=== PATIENT | male | born 1965 | race Caucasian/White ===

== ENCOUNTER 2020-05-03 20:54 | Emergency (ER) | payer SELFPAY ==
[2020-05-03] MEDS ORDERED: LIDOCAINE HCL 2% (MOUTH-THROAT) 15 ML UD ONE (21:04)
[2020-05-03] MEDS ORDERED: MINERAL OIL PO ONE (21:07)
[2020-05-03] MEDS ORDERED: SODIUM PHOS/BIPHOS ENEMA ADULT 133 ML BTTL PR ONE ×2 (21:07→21:09)
[2020-05-03] MEDS ORDERED: BUTORPHANOL TARTRATE 2 MG/ML VIAL ONE (21:31)
[2020-05-03] MEDS ORDERED: BUTORPHANOL TARTRATE 2 MG/ML VIAL IV ONE (21:34)
--- NOTE | 2020-05-03 22:04 | RAD ---
EXAM DESCRIPTION: Abdomen Flat Upright 05/03/2020 10:00 PM [facility] CLINICAL HISTORY: 55 years, Male, abd pain, possible constipation COMPARISON: None. FINDINGS: 2 X-ray views of the of the abdomen (supine and erect) were performed. No prior films are available this time for comparison. The gas pattern is nondiagnostic. No signs of ileus or obstruction. No free air under the diaphragm is noted. Fecal residue within the rectum could correspond to infection. There is a radiodensity within the left renal fossa area lower pole measuring 8.7 mm and a questionable calcification within the medial aspect of the renal fossa measuring 4.5 mm possibility of nephrolithiasis could be of consideration.. There is also noted the presence of a radiodensity within the central aspect of the pelvis measuring 13.6 mm, whether this correspond to phlebolith and/or urinary bladder calculus could be of consideration. The bone windows minimal degenerative changes/anterior spondylosis. IMPRESSION: QUESTIONABLE LEFT NEPHROLITHIASIS AND/OR URINARY BLADDER CALCULUS. CONSTIPATION/FECAL IMPACTION. Electronically signed by: Tomas Raygoza MD 05/03/2020 10:02 PM [facility]
[2020-05-03] MEDS ORDERED: LACTULOSE SYRUP 20 GM/30 ML UD PO ONE (22:08)
--- NOTE | 2020-05-03 22:11 | ED.PDOC ---
History of Present Illness - General Chief Complaint: Abdominal Pain Stated Complaint: abd pain, and constipation Time Seen by Provider: 05/03/20 21:00 Source: patient Exam Limitations: no limitations - History of Present Illness Initial Comments: The patient is a 55-year-old male presented emergency room secondary to abdominal pain due to constipation. The patient has had significant constipation episodes since his injury. The patient has been having cramping for the last 24 to 48 hours. He is passing some watery stool. Rectal exam here shows some hard stool in the rectal vault which is removed but still some more extensive stool proximal that cannot be reached. No rebound or peritoneal signs. No blood in the stool. The only constipation medication I see on the patient's medication list is Colace. No fever. No vomiting. Again he is having watery output around the stool. Timing/Duration: 24 hours Severity: moderate Improving Factors: nothing Worsening Factors: nothing Associated Symptoms: denies symptoms Allergies/Adverse Reactions: Allergies Aspirin Allergy (Verified 05/03/20 21:34) Penicillins Allergy (Verified 05/03/20 21:34) Home Medications: Ambulatory Orders Azathioprine [Azasan] 75 mg PO DAILY 05/03/20 Benzocaine-Menthol (Mouth-Thro [Chloraseptic 6-10 mg] 1 melissa MT Q4HR PRN 05/03/20 Bisacodyl Suppository 10Mg [Dulcolax Suppository 10mg] 10 mg OR DAILY PRN 05/03/20 Diphenhydramine-Zinc Acetate [Benadryl 1-0.1 %] 1 cre EX BID 05/03/20 Docusate Sodium [Colace Cap] 100 mg PO DAILY 05/03/20 Ibuprofen 400 mg PO Q8HR PRN 05/03/20 Lactulose 20 gm PO Q6HR PRN #300 ml 05/03/20 Melatonin 5 mg PO 05/03/20 Multiple Vitamins W/ Minerals [Multivitamin] 1 tab PO 05/03/20 Oxybutynin Chloride [Oxybutynin Chloride ER] 5 mg PO 05/03/20 Promethazine HCl 25 mg PO TID PRN 05/03/20 Pyridostigmine Denver 60 mg PO TID PRN 05/03/20 Review of Systems - Review of Systems Constitutional: States: no symptoms reported EENTM: States: no symptoms reported Respiratory: States: no symptoms reported Cardiology: States: no symptoms reported Gastrointestinal/Abdominal: States: abdominal pain, constipation Genitourinary: States: no symptoms reported Musculoskeletal: States: no symptoms reported Skin: States: no symptoms reported Neurological: States: anxiety Endocrine: States: no symptoms reported All other Systems: No Change from Baseline Past Medical History (General) - Patient Medical History Hx Seizures: No Hx Stroke: No Hx Dementia: No Hx Asthma: No Hx of COPD: No Hx Cardiac Disorders: No Hx Congestive Heart Failure: No Hx Pacemaker: No Hx Hypertension: Yes Hx Thyroid Disease: Yes Hx Diabetes: No Hx Gastroesophageal Reflux: Yes Hx Renal Disease: Yes Hx Cancer: No Hx of HIV: No Hx Hepatitis C: No Hx MRSA: No - Vaccination History Hx Tetanus, Diphtheria Vaccination: Yes Hx Influenza Vaccination: Yes Hx Pneumococcal Vaccination: No Immunizations Up to Date: Yes - Social History Hx Tobacco Use: No Years Tobacco Use: 30 Cigarettes Packs Per Day: 1 Hx Chewing Tobacco Use: No Hx Alcohol Use: No Hx Substance Use: No Hx Substance Use Treatment: No Hx Depression: No - Activities of Daily Living Penitentiary/Assisted Living (if applicable):: [facility] Agency (if applicable):: None Family Medical History - Family History Mother Family History: Unknown Physical Exam - Physical Exam General Appearance: Alert, Obvious distress Eye Exam: bilateral normal Ears, Nose, Throat: hearing grossly normal, normal pharynx Neck: non-tender Respiratory: lungs clear, normal breath sounds, no respiratory distress, no accessory muscle use Cardiovascular/Chest: normal peripheral pulses, no edema, other - Borderline tachycardia but the patient is obviously uncomfortable Peripheral Pulses: radial,right: 2+, radial,left: 2+ Gastrointestinal/Abdominal: soft, other - Stool is palpable. No true rebound or peritoneal signs. Rectal Exam: other - Viscous Lidocaine was used for the rectal exam and fecal disimpaction. Extremity: no pedal edema, normal capillary refill Neurologic: addiction specialist II-XII nml as tested, alert, normal mood/affect - He is appropriately anxious, oriented x 3 Skin Exam: normal color Comments: Vital Signs - 24 hr 05/03/20 20:54 Temperature 97.3 F L Pulse Rate [ 112 H Right Radial] Respiratory 20 Rate Blood Pressure 126/101 [Right Arm] O2 Sat by Pulse 94 L Oximetry Progress - Progress Progress: 05/03/20 22:12 The patient is a 55-year-old male presented emergency room secondary to abdominal pain due to recurrent constipation. Manual disimpaction was attempted by me with viscous lidocaine. He subsequently had a fleets enema and was given oral lactulose. The patient is going to be written for oral lactulose to be used up to 3 times daily if needed for constipation. He should at least receive 3 doses over the course of tomorrow in order to help relieve the constipation higher up. The patient does likely need a longer term medication to use on a daily or semidaily basis to help prevent constipation in the future due to his other medications and decreased mobility. Periodic doses of Castror oil or mineral oil may help. 3-5 times weekly doses of MiraLAX may also help. No evidence of any bowel obstruction at this point. Patient will be discharged back to the long-term care facility to resume his rehabilitation. domingo paul [id number] - Results/Orders Results/Orders: X-ray of the abdomen shows patient. He also likely has a stone in the bladder and the kidneys. Departure - Departure Clinical Impression: Constipation by delayed colonic transit Disposition: Discharge to SNF Condition: Fair Departure Forms: ED Discharge - Pt. Copy, Patient Portal Self Enrollment Instructions: DI for Abdominal Pain-Adult, Constipation, Adult (DC) Diet: other - High-fiber diet Activity: increase activity as tolerated Referrals: West Chris MD [Primary Care Provider] - 1-2 Days Prescriptions: Lactulose 20 gm PO Q6HR PRN #300 ml PRN Reason: Constipation Home Medications: Ambulatory Orders Azathioprine [Azasan] 75 mg PO DAILY 05/03/20 Benzocaine-Menthol (Mouth-Thro [Chloraseptic 6-10 mg] 1 melissa MT Q4HR PRN 05/03/20 Bisacodyl Suppository 10Mg [Dulcolax Suppository 10mg] 10 mg OR DAILY PRN 05/03/20 Diphenhydramine-Zinc Acetate [Benadryl 1-0.1 %] 1 cre EX BID 05/03/20 Docusate Sodium [Colace Cap] 100 mg PO DAILY 05/03/20 Ibuprofen 400 mg PO Q8HR PRN 05/03/20 Lactulose 20 gm PO Q6HR PRN #300 ml 05/03/20 Melatonin 5 mg PO 05/03/20 Multiple Vitamins W/ Minerals [Multivitamin] 1 tab PO 05/03/20 Oxybutynin Chloride [Oxybutynin Chloride ER] 5 mg PO 05/03/20 Promethazine HCl 25 mg PO TID PRN 05/03/20 Pyridostigmine Denver 60 mg PO TID PRN 05/03/20 Additional Instructions: The patient is a 55-year-old male presented emergency room secondary to abdominal pain due to recurrent constipation. Manual disimpaction was attempted by me with viscous lidocaine. He subsequently had a fleets enema and was given oral lactulose. The patient is going to be written for oral lactulose to be used up to 3 times daily if needed for constipation. He should at least receive 3 doses over the course of tomorrow in order to help relieve the constipation higher up. The patient does likely need a longer term medication to use on a daily or semidaily basis to help prevent constipation in the future due to his other medications and decreased mobility. Periodic doses of Castror oil or mineral oil may help. 3-5 times weekly doses of MiraLAX may also help. No evidence of any bowel obstruction at this point. Patient will be discharged back to the long-term care facility to resume his rehabilitation.
[2020-05-03 23:15] VITALS: BP 125/84; TEMP 97; O2SAT 95
== END 2020-05-03 23:15 ==
LOC: ER 20:54
DX: K59.01 Slow transit constipation (principal); K21.9 Gastro-esophageal reflux disease without esophagitis; I10 Essential (primary) hypertension; E07.9 Disorder of thyroid, unspecified; Z79.899 Other long term (current) drug therapy; Z88.6 Allergy status to analgesic agent; Z88.0 Allergy status to penicillin
CPT/HCPCS: 74019; J0595

== ENCOUNTER 2020-05-26 12:10 | Inpatient (IN) | payer MEDICAID ==
--- NOTE | 2020-05-26 12:50 | RAD ---
EXAM: Hip,Left 2 Views INDICATION: 55 years Male, fall COMPARISON: None available FINDINGS: 2 views of the left hip were performed. Osteopenia. Acute subcapital fracture of the proximal left femur with foreshortening. The femoral head remains well seated within the acetabulum. No apparent destructive osseous lesion. IMPRESSION: Acute subcapital fracture of the left femur. Electronically signed by: Kezia East MD 05/26/2020 12:49 PM [facility]
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
[2020-05-26] MEDS ORDERED: MORPHINE SULFATE INJ 10 MG/ML VIAL IV ONE (13:21)
[2020-05-26] MEDS ORDERED: SODIUM CHLORIDE 0.9% 500ML 500 ML IVS ONE (13:22)
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
[2020-05-26] MEDS ORDERED: SODIUM CHLORIDE 0.9% (FLUSH) 10 ML SYG IV PRN (14:48)
[2020-05-26] MEDS ORDERED: ONDANSETRON INJ 4 MG/2 ML VIAL IV PRN (14:48)
[2020-05-26] MEDS ORDERED: ACETAMINOPHEN 325 MG TAB PO PRN (14:48)
[2020-05-26] MEDS ORDERED: ALBUTEROL SULFATE 2.5 MG/3 ML VIAL NEB PRN (14:48)
[2020-05-26] MEDS ORDERED: MORPHINE SULFATE INJ 10 MG/ML VIAL IV PRN (14:48)
[2020-05-26] MEDS ORDERED: POTASSIUM CHLORIDE 20 MEQ TAB PO ONE (15:59)
--- NOTE | 2020-05-26 16:18 | RAD ---
EXAM DESCRIPTION: Chest,1 View CLINICAL HISTORY: z01.818 Preop COMPARISON: None Available. TECHNIQUE: One view radiograph of the chest FINDINGS: Postsurgical changes lower cervical spine. Cardiac silhouette shows normal heart size. Pulmonary vascularity is within normal limits. Lungs show no confluent infiltrates. No pleural effusion. No pneumothorax. Osseous structures of chest show no acute displaced fracture. IMPRESSION: No acute cardiopulmonary process. Electronically signed by: Tomas Martin MD 05/26/2020 4:17 PM [facility]
[2020-05-26] MEDS ORDERED: ACETAMINOPHEN 325 MG TAB PO ONE (16:40)
[2020-05-26] MEDS ORDERED: diphenhydrAMINE HCL 50 MG/ML VIAL IV ONE (16:40)
[2020-05-26] MEDS ORDERED: SODIUM CHLORIDE 0.9% 500ML 500 ML IVS SCH (17:00)
[2020-05-26] MEDS: IV SET AND CAP CHANGE INJ INJ SCH (17:00)
[2020-05-26] MEDS ORDERED: LACTATED RINGERS 1,000 ML ONE (17:09)
[2020-05-26] MEDS ORDERED: POTASSIUM CHLORIDE 20 MEQ TAB ONE (17:09)
[2020-05-26] MEDS: HYDROmorphone HCL INJ 2 MG/ML VIAL IV PRN (17:15)
[2020-05-26] MEDS: LACTATED RINGERS 1,000 ML IVS PRN (17:16)
[2020-05-26] MEDS: SODIUM CHLORIDE 0.9% (FLUSH) 10 ML SYG IV SCH (21:31)
[2020-05-27] MEDS: HYDROmorphone HCL INJ 2 MG/ML VIAL IV PRN ×4 (00:47→21:06)
[2020-05-27] MEDS: LACTATED RINGERS 1,000 ML IVS PRN (00:54)
[2020-05-27] MEDS ORDERED: PANTOPRAZOLE SODIUM IV 40 MG VIAL ONE (04:03)
[2020-05-27] MEDS: PANTOPRAZOLE SODIUM IV 40 MG VIAL IV SCH (05:48)
[2020-05-27] MEDS ORDERED: VANCOMYCIN HCL INJ 1,000 MG in SODIUM CHLORIDE 0.9% 250ML 250 ML IVPB ONE (07:00)
[2020-05-27] MEDS ORDERED: ceFAZolin SODIUM 2 GM in SODIUM CHLORIDE 0.9% 100ML 100 ML IVPB ONE (07:00)
[2020-05-27] MEDS: SODIUM CHLORIDE 0.9% (FLUSH) 10 ML SYG IV SCH ×2 (09:18→20:41)
[2020-05-27] MEDS: PYRIDOSTIGMINE BROMIDE 60 MG PO SCH ×3 (09:18→20:24)
[2020-05-27] MEDS: DOCUSATE SODIUM 100 MG CAP PO SCH (09:19)
[2020-05-27] MEDS: AZATHIOPRINE 75 MG PO SCH (09:19)
[2020-05-27] MEDS ORDERED: VANCOMYCIN HCL INJ 1,000 MG VIAL IVPB ONE ×2 (10:37→12:19)
[2020-05-27] MEDS ORDERED: BUPIVACAINE 0.5% 30 ML VIAL INJ ONE ×2 (10:37→12:19)
[2020-05-27] MEDS ORDERED: ceFAZolin SODIUM 1 GM VIAL ONE (10:37)
[2020-05-27] MEDS ORDERED: BUPIVACAINE LIPOSOME 13.3 MG/ML VIAL INJ ONE ×2 (10:37→12:19)
[2020-05-27] MEDS ORDERED: HYDROmorphone HCL INJ 2 MG/ML VIAL ONE (12:01)
[2020-05-27] MEDS ORDERED: MIDAZOLAM INJ 2 MG/2 ML VIAL ONE (12:01)
[2020-05-27] MEDS ORDERED: CYCLOBENZAPRINE HCL 10 MG TAB PO PRN (12:15)
[2020-05-27] MEDS ORDERED: BENZOCAINE-MENTH LOZ (CEPACOL) 1 EA LOZ MT PRN (12:15)
[2020-05-27] MEDS ORDERED: TEMAZEPAM 15 MG CAP PO PRN (12:15)
[2020-05-27] MEDS ORDERED: MAGNESIUM HYDROXIDE 30 ML UD PO PRN (12:15)
[2020-05-27] MEDS ORDERED: ALUMINUM & MAGNESIUM HYDROXIDE 30 ML UD PO PRN (12:15)
[2020-05-27] MEDS ORDERED: BISACODYL SUPPOSITORY 10 MG PR PRN (12:15)
[2020-05-27] MEDS ORDERED: ZOLPIDEM TARTRATE 5 MG TAB PO PRN (12:15)
[2020-05-27] MEDS ORDERED: ACETAMINOPHEN 325 MG TAB PO PRN (12:15)
[2020-05-27] MEDS ORDERED: ceFAZolin SODIUM 1 GM VIAL IRRIG ONE (12:19)
[2020-05-27] MEDS ORDERED: ELECTROLYTE-A 1,000 ML IVS ONE ×2 (12:21→13:52)
[2020-05-27] MEDS ORDERED: ceFAZolin SODIUM 2 GM in SODIUM CHLORIDE 0.9% 100ML 100 ML IVPB SCH (12:30)
[2020-05-27] MEDS ORDERED: PROPOFOL 200 MG/20 ML VIAL IV ONE (12:46)
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
[2020-05-27] MEDS: cefTRIAXone SODIUM 1 GM in SODIUM CHL 0.9% 50ML MIN-BAG+ 50 ML IVPB SCH (15:53)
--- NOTE | 2020-05-27 15:53 | RAD ---
EXAM DESCRIPTION: Hip,Left 2 Views CLINICAL HISTORY: post-op COMPARISON: May 26, 2020 IMPRESSION: 2 views of the left hip including crosstable lateral shows interval postsurgical changes from hip arthroplasty with cement fixation of the femoral component. No complicating features are seen. Soft tissue emphysema lateral to the hip is identified. Osseous structures are diffusely osteopenic. Electronically signed by: Jamel Bowie MD 05/27/2020 3:51 PM [facility]
--- NOTE | 2020-05-27 15:54 | RAD ---
EXAM DESCRIPTION: Pelvis,2 or More Views CLINICAL HISTORY: 55 years Male, post op COMPARISON: Yesterday Findings: One view(s)/radiograph(s) Left hip arthroplasty. No hardware complication. Osteopenia. Suboptimal profiling of the right femoral neck. No acute fracture lucency is identified. No dislocation. IMPRESSION: Left hip arthroplasty. No hardware complication. Electronically signed by: Yann Benavides MD 05/27/2020 3:52 PM [facility]
[2020-05-27] MEDS ORDERED: VANCOMYCIN HCL INJ 1,000 MG in SODIUM CHLORIDE 0.9% 250ML 250 ML IVPB SCH (18:00)
[2020-05-27] MEDS ORDERED: PROMETHAZINE HCL INJ 12.5 MG in SODIUM CHLORIDE 0.9% 50ML 50 ML IVPB PRN (19:32)
[2020-05-27] MEDS ORDERED: ACETAMINOPHEN 500 MG TAB PO PRN (19:32)
[2020-05-27] MEDS ORDERED: PROMETHAZINE HCL INJ 25 MG in SODIUM CHLORIDE 0.9% 50ML 50 ML IVPB PRN (19:32)
[2020-05-27] MEDS ORDERED: NALOXONE HCL INJ 0.4 MG/ML VIAL IV PRN (19:32)
[2020-05-27] MEDS ORDERED: SODIUM CHLORIDE 0.9% (FLUSH) 10 ML SYG IV PRN (19:32)
[2020-05-27] MEDS: VANCOMYCIN HCL INJ 1,000 MG in SODIUM CHLORIDE 0.9% 250ML 250 ML IVPB SCH (20:23)
[2020-05-27] MEDS: hydrOXYzine HCl 25 MG TAB PO PRN (20:24)
[2020-05-27] MEDS: DOCUSATE CALCIUM 240 MG CAP PO SCH (20:24)
[2020-05-27] MEDS: IV SET AND CAP CHANGE INJ INJ SCH (20:42)
[2020-05-27] MEDS: ENOXAPARIN SODIUM 30 MG/0.3 ML SYG SUBCU SCH ×2 (22:56→23:18)
[2020-05-27] MEDS ORDERED: ENOXAPARIN SODIUM 30 MG/0.3 ML SYG SUBCU SCH (23:00)
[2020-05-28] MEDS: HYDROmorphone HCL INJ 2 MG/ML VIAL IV PRN ×5 (03:38→19:01)
[2020-05-28] MEDS: diphenhydrAMINE HCL 50 MG/ML VIAL IV PRN ×2 (03:39→11:18)
[2020-05-28] MEDS: PANTOPRAZOLE SODIUM IV 40 MG VIAL IV SCH (05:39)
[2020-05-28] MEDS: hydrOXYzine HCl 25 MG TAB PO PRN ×3 (07:32→20:48)
[2020-05-28] MEDS: VANCOMYCIN HCL INJ 1,000 MG in SODIUM CHLORIDE 0.9% 250ML 250 ML IVPB SCH (08:56)
[2020-05-28] MEDS: DOCUSATE SODIUM 100 MG CAP PO SCH (08:57)
[2020-05-28] MEDS: PYRIDOSTIGMINE BROMIDE 60 MG PO SCH ×3 (08:57→20:47)
[2020-05-28] MEDS: SODIUM CHLORIDE 0.9% (FLUSH) 10 ML SYG IV SCH ×2 (08:58→20:48)
[2020-05-28] MEDS: AZATHIOPRINE 75 MG PO SCH (09:00)
[2020-05-28] MEDS: MAGNESIUM OXIDE 400 MG TAB PO SCH (09:03)
[2020-05-28] MEDS: ENOXAPARIN SODIUM 30 MG/0.3 ML SYG SUBCU SCH ×2 (11:01→23:45)
[2020-05-28] MEDS: cefTRIAXone SODIUM 1 GM in SODIUM CHL 0.9% 50ML MIN-BAG+ 50 ML IVPB SCH (14:39)
[2020-05-28] MEDS ORDERED: DOCUSATE CALCIUM 240 MG CAP ONE (18:55)
[2020-05-28] MEDS: DOCUSATE CALCIUM 240 MG CAP PO SCH (20:47)
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
[2020-05-29] MEDS: PANTOPRAZOLE SODIUM IV 40 MG VIAL IV SCH (06:06)
[2020-05-29] MEDS ORDERED: MAGNESIUM OXIDE 400 MG TAB ONE (07:45)
[2020-05-29] MEDS: HYDROmorphone HCL INJ 2 MG/ML VIAL IV PRN ×4 (08:07→20:05)
[2020-05-29] MEDS: AZATHIOPRINE 75 MG PO SCH (08:08)
[2020-05-29] MEDS: PYRIDOSTIGMINE BROMIDE 60 MG PO SCH ×3 (08:08→20:07)
[2020-05-29] MEDS: SODIUM CHLORIDE 0.9% (FLUSH) 10 ML SYG IV SCH ×4 (08:08→20:08)
[2020-05-29] MEDS: DOCUSATE SODIUM 100 MG CAP PO SCH (08:08)
[2020-05-29] MEDS: MAGNESIUM OXIDE 400 MG TAB PO SCH (08:08)
[2020-05-29] MEDS: hydrOXYzine HCl 25 MG TAB PO PRN ×2 (11:59→20:05)
[2020-05-29] MEDS: ENOXAPARIN SODIUM 30 MG/0.3 ML SYG SUBCU SCH ×2 (12:05→22:53)
--- NOTE | 2020-05-29 12:30 | PN ---
DATE: 05/28/20 SUBJECTIVE: Mr. Luo is doing well. He has good pain control. OBJECTIVE: Vital signs are stable. Dressing is clean, dry and intact. ASSESSMENT: 1. Status post hemiarthroplasty. PLAN: The plan at this point is for him to begin weightbearing as tolerated. [facility][id number] [facility]
--- NOTE | 2020-05-29 12:31 | PN ---
DATE: 05/29/20 SUBJECTIVE: Mr. Luo is doing well. He has adequate pain control right now. OBJECTIVE: He is afebrile. Vital signs are stable. Wound is clean. There are no signs or symptoms of infection. ASSESSMENT: 1. Status post hemiarthroplasty. PLAN: He will continue on with his weightbearing status. #[id number] MTDD
[2020-05-29] MEDS: cefTRIAXone SODIUM 1 GM in SODIUM CHL 0.9% 50ML MIN-BAG+ 50 ML IVPB SCH (13:53)
[2020-05-29] MEDS: IV SET AND CAP CHANGE INJ INJ SCH (13:53)
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
[2020-05-29] MEDS ORDERED: DOCUSATE CALCIUM 240 MG CAP ONE (19:22)
[2020-05-29] MEDS ORDERED: VANCOMYCIN HCL INJ 1,000 MG VIAL IVPB ONE (19:22)
[2020-05-29] MEDS ORDERED: ENOXAPARIN SODIUM 30 MG/0.3 ML SYG SUBCU ONE (19:22)
[2020-05-29] MEDS ORDERED: SODIUM CHLORIDE 0.9% 250ML 250 ML ONE (19:23)
[2020-05-29] MEDS: DOCUSATE CALCIUM 240 MG CAP PO SCH (20:08)
[2020-05-29] MEDS: VANCOMYCIN HCL INJ 1,000 MG in SODIUM CHLORIDE 0.9% 250ML 250 ML IVPB SCH (20:29)
[2020-05-30] MEDS: HYDROmorphone HCL INJ 2 MG/ML VIAL IV PRN ×2 (04:00→08:20)
[2020-05-30] MEDS: PANTOPRAZOLE SODIUM IV 40 MG VIAL IV SCH (06:07)
[2020-05-30] MEDS ORDERED: POTASSIUM CHLORIDE 20 MEQ TAB PO ONE (06:30)
[2020-05-30] MEDS ORDERED: MAGNESIUM OXIDE 400 MG TAB ONE (07:12)
[2020-05-30] MEDS: MAGNESIUM OXIDE 400 MG TAB PO SCH (08:21)
[2020-05-30] MEDS: AZATHIOPRINE 75 MG PO SCH (08:21)
[2020-05-30] MEDS: DOCUSATE SODIUM 100 MG CAP PO SCH (08:21)
[2020-05-30] MEDS: PYRIDOSTIGMINE BROMIDE 60 MG PO SCH ×3 (08:22→20:45)
[2020-05-30] MEDS: hydrOXYzine HCl 25 MG TAB PO PRN ×2 (08:24→20:47)
[2020-05-30] MEDS: SODIUM CHLORIDE 0.9% (FLUSH) 10 ML SYG IV SCH ×4 (08:25→20:38)
[2020-05-30] MEDS ORDERED: VANCOMYCIN HCL INJ 1,000 MG VIAL IVPB ONE ×2 (09:40→19:28)
[2020-05-30] MEDS ORDERED: SODIUM CHLORIDE 0.9% 250ML 250 ML ONE ×2 (09:40→19:29)
[2020-05-30] MEDS: VANCOMYCIN HCL INJ 1,000 MG in SODIUM CHLORIDE 0.9% 250ML 250 ML IVPB SCH (09:44)
[2020-05-30] MEDS ORDERED: VANCOMYCIN PER PHARMACY IVPB SCH (10:00)
[2020-05-30] MEDS: NICOTINE PATCH 14 MG TD SCH (10:03)
[2020-05-30] MEDS: ENOXAPARIN SODIUM 30 MG/0.3 ML SYG SUBCU SCH ×2 (10:03→22:52)
[2020-05-30] MEDS: HYDROcodone 10MG/APAP 325MG 1 EA TAB PO PRN (11:56)
[2020-05-30] MEDS: cefTRIAXone SODIUM 1 GM in SODIUM CHL 0.9% 50ML MIN-BAG+ 50 ML IVPB SCH (15:03)
[2020-05-30] MEDS ORDERED: VANCOMYCIN HCL INJ 500 MG VIAL ONE (19:29)
[2020-05-30] MEDS: IV SET AND CAP CHANGE INJ INJ SCH (20:37)
[2020-05-30] MEDS: DOCUSATE CALCIUM 240 MG CAP PO SCH (20:45)
[2020-05-30] MEDS: VANCOMYCIN HCL INJ 1,000 MG, VANCOMYCIN HCL INJ 250 MG in SODIUM CHLORIDE 0.9% 250ML 25... IVPB SCH (20:50)
[2020-05-30] MEDS ORDERED: BISACODYL SUPPOSITORY 10 MG PR ONE (21:00)
[2020-05-30] MEDS ORDERED: MAGNESIUM HYDROXIDE 30 ML UD PO ONE (21:00)
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
[2020-05-31] MEDS: HYDROcodone 10MG/APAP 325MG 1 EA TAB PO PRN ×2 (05:07→09:13)
[2020-05-31] MEDS: PANTOPRAZOLE SODIUM IV 40 MG VIAL IV SCH (06:21)
[2020-05-31] MEDS ORDERED: ENOXAPARIN SODIUM 30 MG/0.3 ML SYG SUBCU ONE (07:02)
[2020-05-31] MEDS: NICOTINE PATCH 14 MG TD SCH (08:01)
[2020-05-31] MEDS: MAGNESIUM OXIDE 400 MG TAB PO SCH (08:01)
[2020-05-31] MEDS: AZATHIOPRINE 75 MG PO SCH (08:01)
[2020-05-31] MEDS: VANCOMYCIN HCL INJ 1,000 MG, VANCOMYCIN HCL INJ 250 MG in SODIUM CHLORIDE 0.9% 250ML 25... IVPB SCH (08:01)
[2020-05-31] MEDS: DOCUSATE SODIUM 100 MG CAP PO SCH (08:01)
[2020-05-31] MEDS: PYRIDOSTIGMINE BROMIDE 60 MG PO SCH (08:03)
[2020-05-31] MEDS: SODIUM CHLORIDE 0.9% (FLUSH) 10 ML SYG IV SCH ×2 (08:03)
[2020-05-31 08:23] VITALS: BP 121/76; TEMP 98; O2SAT 97
[2020-05-31] MEDS: ENOXAPARIN SODIUM 30 MG/0.3 ML SYG SUBCU SCH (10:05)
--- NOTE | 2020-06-01 08:50 | OP ---
DATE OF PROCEDURE: 05/27/20 PREOPERATIVE DIAGNOSIS: 1. Femoral neck fracture. POSTOPERATIVE DIAGNOSIS: 1. Femoral neck fracture. PROCEDURE: 1. Hemiarthroplasty. SURGEON: Umang Hermosillo MD. RIVETING MACHINE OPERATOR TAPE CONTROL: Tate Bal CST, SA-C. ANESTHESIA: General. COMPLICATIONS: None. FINDINGS: Transcervical femoral neck fracture with severely osteoporotic bone. INDICATION: Mr. Luo has a history of a fall and had the acute onset of pain. His index fall was actually about two weeks prior to his presentation to the hospital. Subsequent to that, he had x-rays and x-rays revealed a fracture of the femoral neck. After discussing the risks, benefits and alternatives to surgical intervention, he gave informed consent for hemiarthroplasty. PROCEDURE: The patient was brought to the Operating Room and placed in supine position. Anesthesia was induced and the patient was transitioned into the lateral decubitus position. The leg and hemipelvis were sterilely prepped and draped and an incision was made centered on the greater trochanter with extension both proximally and distally. Dissection was carried down to the iliotibial band which was sharply incised along the course of its fibers. A Charnley retractor was placed and the abductor musculature was identified. The anterior one-third of the abductor musculature was elevated off the greater trochanter using electrocautery and the capsule was incised. The femoral head was removed and the primary femoral neck cut was made. The acetabulum was examined and found to be free of any significant defect, therefore attention was focused on the femur. The femoral canal was sequentially broached until an appropriate sized trial prosthesis was placed. A trial femoral head was placed and the hip was reduced. The hip was taken through a full range of motion and demonstrated stability without impingement or pending dislocation and the leg length appeared to be paresthesias. Following trialing, the trial component was removed and the femoral canal was prepared for cementation of the prosthesis. A distal cement restrictor was placed and the final component was cemented into place. The excess cement was removed and the remaining cement was allowed to cure. The final head was impacted and the hip was reduced, taken through a full range of motion, and found to be stable without impingement. The wound was thoroughly irrigated and the abductor musculature was reapproximated to the greater trochanter through drill holes using Ethibond. The repair was augmented with PDS suture and the iliotibial band was subsequently closed. The subcutaneous tissues were closed with a combination of running and interrupted subcuticular stitches, a sterile dressing was placed, and the patient was transitioned into the supine position. The patient was awoken from anesthesia and taken to the Recovery Room in stable condition. POSTOPERATIVE PLAN: The patient will be weight-bearing as tolerated on postoperative day 1. COMPONENTS: Vauxhall Accolade II, size 6 stem and size 54 mm head. #[id number] MTDD
--- NOTE | 2020-06-01 09:15 | PN ---
DATE: 05/31/20 SUBJECTIVE: Mr. Luo is doing well and his pain is improved. OBJECTIVE: Afebrile. Vital signs stable. Wound is clean. There are no signs or symptoms of infection. ASSESSMENT: Status post hemiarthroplasty. PLAN: The plan today is to have Mr. Luo return to [facility] for his inpatient rehab. He will continue his weightbearing status and will followup with us in two weeks. #[id number] MTDD
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
== END 2020-05-31 10:06 | DRG 522 ==
LOC: ER 12:10 → MS 12:11 → UNDOADMOB 14:32 → INTOOBSV 14:32 → OBSVTOIN 14:32 → UNDODISIN 05-31 10:06
PROVIDERS: ADMIT Nurse Practitioner Acute Care; ATTEND Nurse Practitioner Family
PROC: 0SRS0J9 Replacement of Left Hip Joint, Femoral Surface with Synthetic Substitute, Cemented, Open Approach (ICD-10-PCS; principal; 2020-05-27 13:00)
DX: M80.052A Age-related osteoporosis with current pathological fracture, left femur, initial encounter for fracture (principal); G82.20 Paraplegia, unspecified; N39.0 Urinary tract infection, site not specified; I10 Essential (primary) hypertension; K59.09 Other constipation; R33.9 Retention of urine, unspecified; G70.00 Myasthenia gravis without (acute) exacerbation; F17.210 Nicotine dependence, cigarettes, uncomplicated